=== PATIENT | female | born 2000 | race Caucasian/White ===

== ENCOUNTER 2023-12-24 11:41 | Outpatient (CLI) | payer OTHER, SELFPAY ==
--- NOTE | ~2023-12-24 | US_ITS ---
Pelvic ultrasound. Clinical History: Pelvic pain Technique: Realtime transabdominal and transvaginal scanning of the pelvis was performed. Color flow Doppler and Doppler spectral analysis were performed. Findings: The uterus is anteverted. The endometrial stripe has a thickness of 9 mm. IUD probably in satisfactory position. No focal mass is identified. The right ovary measures 4.2 x 2.0 x 3.8 cm. No significant right ovarian or adnexal mass is seen. The left ovary measures 2.9 x 2.5 x 3.3 cm. No significant left ovarian or adnexal mass is seen. There is no evidence of free fluid in the cul de sac. Impression: IUD in place. No other significant abnormality seen. Reviewed, dictated and finalized at [facility]. Impression: IUD in place. No other significant abnormality seen.
== END 2023-12-24 11:42 | disposition home or self-care (01) ==
LOC: MICIMG 11:44
PROVIDERS: PCP Nurse Practitioner Women's Health; Visit Provider Nurse Practitioner Women's Health
DX: Z96.0 Presence of urogenital implants (principal); R10.2 Pelvic and perineal pain; N83.201 Unspecified ovarian cyst, right side; N83.202 Unspecified ovarian cyst, left side
CPT/HCPCS: 76856